=== PATIENT | male | born 1930 | race Caucasian/White ===

== ENCOUNTER → 2016-10-13 | Outpatient (CLI) | payer MEDICARE ==
--- NOTE | 2016-10-13 11:55 | Diagnostic Imaging Report ---
Indication: Abdominal pain Technique: Continuous helical transaxial imaging of the abdomen and pelvis was obtained from the lung bases to the pubic symphysis during intravenous contrast administration. Coronal 2-D reformats were also obtained. Study obtained in a Siemens sensation [address] Total Dose length Product (DLP): [address] Dose Index Volume (CTDIvol): 18 mGy Comparison: 05/13/15 Findings: The lung bases are clear. There are multiple cysts within both kidneys of varying size. The largest single cyst is in the upper pole left kidney and has approximate measurements of 15 x 12 x 9 cm. No abnormalities of the liver, spleen or pancreas are definitely seen. There is no adrenal mass. Gallbladder is unremarkable. Aorta is moderately calcified. There are diverticula noted throughout the colon. Prostate is enlarged. Appendix is not definite seen but there are no secondary signs of acute appendicitis. There is narrowing of intervertebral discs and accompanying endplate osteophyte formation. Hypertrophied facet joints also demonstrated. Impression: Multiple cysts within both kidneys. Symphysis are quite large with the largest single cyst of the left kidney measuring 15 cm. Diverticulosis of the colon Prostate enlargement Spondylosis Similar findings seen previously The CT scanner at [facility] is accredited by the [employer] and the scans are performed using protocols designed to limit radiation exposure to as low as reasonably achievable to attain images of sufficient resolution adequate for diagnostic evaluation.
== END | disposition home or self-care (01) ==
LOC: CAT 09:02
DX: N28.1 Cyst of kidney, acquired (principal); K57.90 Diverticulosis of intestine, part unspecified, without perforation or abscess without bleeding; N40.0 Benign prostatic hyperplasia without lower urinary tract symptoms; M47.9 Spondylosis, unspecified
CPT/HCPCS: 74177; Q9967

== ENCOUNTER 2016-12-15 15:00 | Outpatient (RCR) | payer MEDICARE | END 2017-01-05 | disposition home or self-care (01) | LOC: PTY 15:00 | DX: I89.0 Lymphedema, not elsewhere classified (principal) ==

== ENCOUNTER 2017-01-28 09:00 | Outpatient (RCR) | payer MEDICARE, OTHER | END 2017-02-04 | disposition home or self-care (01) | LOC: PTY 09:00 | DX: I89.0 Lymphedema, not elsewhere classified (principal) ==

== ENCOUNTER 2017-02-10 11:00 | Outpatient (RCR) | payer MEDICARE, OTHER | END 2017-03-07 | disposition home or self-care (01) | LOC: PTY 11:00 | DX: I89.0 Lymphedema, not elsewhere classified (principal) ==

== ENCOUNTER 2017-11-13 16:01 | Inpatient (IN) | payer MEDICARE, OTHER ==
[~2017-11-13] VITALS: Ht 175.3 cm; Wt 98.0 kg
--- NOTE | 2017-11-13 16:22 | Emergency Room Report ---
History of Present Illness General Chief Complaint: Generalized Weakness Source: Patient Present Illness HPI 87-year-old male, history of hypertension, presenting with increasing forgetfulness, tremors, gait instability. Patient lives at home, usually drives on his own, he is brought by a friend as friend states that he has been increasingly weak for the last 3 weeks. He has had worsening bilateral hand tremors, sometimes unable to walk and loses his balance. He has fallen however no head trauma. Patient is currently ANO 4, however friend states that he will intermittently forget everything. Patient walks with a cane however recently has been walking very slowly, and feels like he will fall at any time Denies any fever chills headache chest pain nausea vomiting diarrhea abdominal pain Allergies: Coded Allergies: No Known Allergies (Unverified , 11/15/16) Patient History Past Medical History: see triage record Past Surgical History: none Pertinent Family History: none Reviewed Nursing Documentation: PMH: Agreed; PSxH: Agreed Nursing Documentation-PMH Hx Hypertension: Yes Hx Cancer: Yes - HX OF SKIN CANCER Review of Systems All Other Systems: negative except mentioned in HPI Physical Exam Vital Signs Date Time Temp Pulse Resp B/P (MAP) Pulse Ox O2 Delivery O2 Flow Rate FiO2 11/13/17 16:11 98.2 88 16 184/107 94 Room Air 98.2 Sp02 EP Interpretation: reviewed, normal General Appearance: other - Elderly male, appears anxious, however is cooperative, speaking complete sentences Head: normocephalic, atraumatic Eyes: bilateral eye normal inspection, bilateral eye PERRL, bilateral eye EOMI ENT: normal ENT inspection, normal pharynx, normal voice, moist mucus membranes Neck: normal inspection, full range of motion, supple Respiratory: normal inspection, lungs clear, normal breath sounds, no respiratory distress, no retraction, no wheezing, speaking full sentences, chest symmetrical Cardiovascular #1: normal inspection, regular rate, rhythm, normal capillary refill Cardiovascular #2: 2+ radial (R), 2+ radial (L) Gastrointestinal: normal inspection, non tender, soft, non-distended, no guarding Musculoskeletal: normal inspection, back normal, normal range of motion, non- tender Neurologic: oriented x3, responsive, microbiology lab manager III-XII nml as tested, motor strength/ tone normal, other - Bilateral hand resting tremors, finger to nose is normal Psychiatric: normal inspection, judgement/insight normal, memory normal Skin: normal inspection, normal color, no rash, warm/dry, well hydrated, normal turgor Medical Decision Making Diagnostic Impression: Primary Impression: Gait instability Additional Impressions: Step-ackerman progression of memory impairment Frequent falls ER Course 87-year-old male, progressive memory loss, resting hand tremors, gait instability Frequent falls DDX: Dementia, Parkinson's disease Plan: Obtain labs, ua, EKG, CXR CT head ER course: Patient remains awake and alert given meds for back pain Disposition: Patient is to be admitted to [facility] D/W hospitalist Dr Gillis covering Dr Bourgeois Please note that this Emergency Department Report was dictated using [employer]sm[employer] polisher technology software, occasionally this can lead to erroneous entry secondary to interpretation by the dictation equipment. EKG Diagnostic Results EP Interpretation: Yes Rate: normal Rhythm: NSR ST Segments: No acute changes ASA given to patient: No Rhythm Strip EP Interpretation: Yes Rate: 87 Rhythm: NSR, no PVCs, no ectopy Chest X-ray CXR: Ordered: Yes 1 view Indication: Fall EP interpretation: Yes Interpretation: No consolidation, no effusion, no PTX, no acute cardiopulmonary disease Impression: No acute disease Electronically signed by Pat Sommers MD Laboratory Tests Test 11/13/17 16:37 White Blood Count 5.8 K/UL (4.8-10.8) Red Blood Count 4.45 M/UL (4.70-6.10) L Hemoglobin 13.9 G/DL (14.2-18.0) L Hematocrit 42.3 % (42.0-52.0) Mean Corpuscular Volume 95 FL (80-99) Mean Corpuscular Hemoglobin 31.2 PG (27.0-31.0) H Mean Corpuscular Hemoglobin Concent 32.9 G/DL (32.0-36.0) Red Cell Distribution Width 11.9 % (11.6-14.8) Platelet Count 145 K/UL (150-450) L Mean Platelet Volume 8.5 FL (6.5-10.1) Neutrophils (%) (Auto) 60.3 % (45.0-75.0) Lymphocytes (%) (Auto) 26.3 % (20.0-45.0) Monocytes (%) (Auto) 10.3 % (1.0-10.0) H Eosinophils (%) (Auto) 2.2 % (0.0-3.0) Basophils (%) (Auto) 0.8 % (0.0-2.0) Sodium Level 142 MMOL/L (136-145) Potassium Level 3.6 MMOL/L (3.5-5.1) Chloride Level 106 MMOL/L (98-107) Carbon Dioxide Level 29 MMOL/L (21-32) Anion Gap 7 mmol/L (5-15) Blood Urea Nitrogen 16 mg/dL (7-18) Creatinine 1.1 MG/DL (0.55-1.30) Estimate Glomerular Filtration Rate mL/min (>60) Glucose Level 104 MG/DL (74-106) Calcium Level 8.7 MG/DL (8.5-10.1) Total Bilirubin 0.6 MG/DL (0.2-1.0) Aspartate Amino Transferase (AST) 17 U/L (15-37) Alanine Aminotransferase (ALT) 17 U/L (12-78) Alkaline Phosphatase 57 U/L (46-116) Troponin I 0.004 ng/mL (0.000-0.056) Pro-B-Type Natriuretic Peptide 200 pg/mL (0-125) H Total Protein 6.2 G/DL (6.4-8.2) L Albumin 3.4 G/DL (3.4-5.0) Globulin 2.8 g/dL Albumin/Globulin Ratio 1.2 (1.0-2.7) CT/MRI/US Diagnostic Results CT/MRI/US Diagnostic Results : Imaging Test Ordered: CT HEAD Impression neg Last Vital Signs Date Time Temp Pulse Resp B/P (MAP) Pulse Ox O2 Delivery O2 Flow Rate FiO2 11/13/17 16:11 98.2 88 16 184/107 94 Room Air 98.2 Disposition: ADMITTED INPATIENT Condition: Pat Dang M.D. Nov 13, 2017 16:22
[2017-11-13 16:24] VITALS: BP 184/107
[2017-11-13 16:57] LABS: BASOPHILS % (AUTO) 0.8 % (0.0-2.0); EOSINOPHILS % (AUTO) 2.2 % (0.0-3.0); HEMATOCRIT 42.3 % (42.0-52.0); HEMOGLOBIN 13.9 G/DL (14.2-18.0); LYMPHOCYTES % (AUTO) 26.3 % (20.0-45.0); MEAN CORPUSCULAR VOLUME 95 FL (80-99); MONOCYTES % (AUTO) 10.3 % (1.0-10.0); NEUTROPHILS % (AUTO) 60.3 % (45.0-75.0); PLATELET COUNT 145 K/UL (150-450); RED BLOOD COUNT 4.45 M/UL (4.70-6.10); RED CELL DISTRIBUTION WIDTH 11.9 % (11.6-14.8); WHITE BLOOD COUNT 5.8 K/UL (4.8-10.8)
[2017-11-13 17:09] LABS: ANION GAP 7 mmol/L (5-15); BLOOD UREA NITROGEN 16 mg/dL (7-18); CALCIUM 8.7 MG/DL (8.5-10.1); CARBON DIOXIDE 29 MMOL/L (21-32); CHLORIDE 106 MMOL/L (98-107); CREATININE 1.1 MG/DL (0.55-1.30); POTASSIUM 3.6 MMOL/L (3.5-5.1); SODIUM 142 MMOL/L (136-145)
[2017-11-13 17:15] LABS: ALANINE AMINOTRANSFERASE 17 U/L (12-78); ALBUMIN 3.4 G/DL (3.4-5.0); ALBUMIN/GLOBULIN RATIO 1.2 (1.0-2.7); ALKALINE PHOSPHATASE 57 U/L (46-116); ASPARTATE AMINO TRANSFERASE 17 U/L (15-37); BILIRUBIN,TOTAL 0.6 MG/DL (0.2-1.0)
[2017-11-13] MEDS ORDERED: LISINOPRIL10 MG ORAL (17:43)
[2017-11-13] MEDS ORDERED: ACETAMINOPHEN325 M1 ORAL (17:44)
[2017-11-13] MEDS ORDERED: OMEPRAZOLE10 M1 ORAL (17:44)
[2017-11-13] MEDS ORDERED: Methocarbamol 750mg tab ORAL ONE (17:45)
[2017-11-13] MEDS ORDERED: Acetaminophen 500mg (ES) tab ORAL ONE (17:45)
[2017-11-13] MEDS ORDERED: LORAZEPAM0.5 MG ORAL (17:45)
[2017-11-13] MEDS ORDERED: TRAMADOL HCL50 MG ORAL (17:46)
[2017-11-13] MEDS ORDERED: METRONIDAZOLE500 MG ORAL (17:47)
[2017-11-13] MEDS ORDERED: LEVOFLOXACIN500 MG ORAL (17:47)
[2017-11-13] MEDS ORDERED: Miralax 17gm pkt ORAL PRN (19:30)
[2017-11-13] MEDS ORDERED: LORazepam 0.5mg tab ORAL PRN (19:45)
[2017-11-13] MEDS ORDERED: traMADol 50mg tab ORAL PRN (19:45)
[2017-11-13 19:49] VITALS: BP 150/80
[2017-11-13 20:08] LABS: APPEARANCE,URINE CLEAR; BILIRUBIN, URINE NEGATIVE (NEGATIVE); COLOR,URINE YELLOW; GLUCOSE, URINE (UA) NEGATIVE (NEGATIVE); KETONES,URINE 1+ (NEGATIVE); LEUKOCYTE ESTERASE ,URINE 1+ (NEGATIVE); NITRITE,URINE NEGATIVE (NEGATIVE); PH,URINE 5 (4.5-8.0); PROTEIN,URINE 4+ (NEGATIVE); UROBILINOGEN,URINE NORMAL MG/DL (0.0-1.0)
--- NOTE | 2017-11-13 21:26 | History and Physical ---
History of Present Illness General Date patient seen: Nov 13, 2017 Time patient seen: 21:25 Reason for Hospitalization: Generalized Weakness, AMS, gait instability Present Illness HPI 87y/o male with pmh of HTN, anxiety, GERD who presents with increasing confusion , tremors, and gait instability. Pt lives at home, usually drives on his own, he is brought by a friend as friend states that he has been increasingly weak for the last 3 weeks. He has had worsening bilateral hand tremors, sometimes unable to walk and loses his balance. He has fallen however denies head trauma. Patient is currently ANO 4, however friend states that he will intermittently forget everything. Patient walks with a cane however recently has been walking very slowly, and feels like he will fall at any time. Denies f/ c, n/v, d/c, chest pain, SOB, abd pain. Allergies: Coded Allergies: No Known Allergies (Unverified , 11/15/16) Medication History Scheduled Acetaminophen* (Acetaminophen 325MG Tablet*), 325 MG ORAL BID, (Reported) Cefuroxime Axetil (Ceftin), 250 MG PO BID Lisinopril* (Lisinopril*), 10 MG ORAL DAILY, (Reported) Lorazepam* (Lorazepam*), 0.5 MG ORAL BID, (Reported) Omeprazole (Omeprazole), 10 MG ORAL TWICE A DAY, (Reported) Scheduled PRN Tramadol Hcl* (Ultram*), 50 MG ORAL Q6H PRN for For Pain, (Reported) Discontinued Medications Levofloxacin (Levofloxacin*), 500 MG ORAL DAILY, (Reported) Discontinued Reason: MD discontinued med Metronidazole* (Flagyl*), 500 MG ORAL EVERY 8 HOURS, (Reported) Discontinued Reason: MD discontinued med Patient History History Provided By: Patient, Medical Record, PMD Healthcare decision maker Resuscitation status Advanced Directive on File Past Medical/Surgical History Past Medical/Surgical History: (1) HTN (hypertension) (2) GERD (gastroesophageal reflux disease) (3) Anxiety Family History Family History: Patient reports no known family medical history. Review of Systems Constitutional: Reports: weakness Eye: Reports: no symptoms ENT: Reports: no symptoms Respiratory: Reports: no symptoms Cardiovascular: Reports: no symptoms Gastrointestinal: Reports: no symptoms Genitourinary: Reports: no symptoms Musculoskeletal: Reports: no symptoms Skin: Reports: no symptoms Psychiatric: Reports: anxiety Neurological: Reports: tremors Endocrine: Reports: no symptoms Hematologic/Lymphatic: Reports: no symptoms Physical Exam Physical Exam Narrative General: alert, cooperative, no distress, appears stated age, A&Ox2-3 (not to date) Head: normocephalic, without obvious abnormality, atraumatic Eyes: conjunctivae/corneas clear. PERRL, EOM's intact Throat: lips, mucosa, and tongue normal. MMM Neck: supple, symmetrical, trachea midline, and no JVD Lungs: clear to auscultation bilaterally Heart: regular rate and rhythm, S1, S2 normal, no murmur, click, rub or gallop Abdomen: soft, non-tender, non-distended, bowel sounds normal; no masses or organomegaly Extremities: extremities normal, atraumatic, no cyanosis or edema Pulses: 2+ and symmetric Skin: skin color, texture, turgor normal; no rashes or lesions Neurologic: grossly normal, no focal deficits, +tremor Last 24 Hour Vital Signs Date Time Temp Pulse Resp B/P (MAP) Pulse Ox O2 Delivery O2 Flow Rate FiO2 11/13/17 19:49 98.0 71 16 150/80 97 Room Air 98.0 11/13/17 19:02 98.2 11/13/17 16:24 98.2 16 184/107 94 Room Air 98.2 11/13/17 16:11 98.2 88 16 184/107 94 Room Air 98.2 Laboratory Tests Test 11/13/17 16:37 11/13/17 19:59 White Blood Count 5.8 K/UL (4.8-10.8) Red Blood Count 4.45 M/UL (4.70-6.10) L Hemoglobin 13.9 G/DL (14.2-18.0) L Hematocrit 42.3 % (42.0-52.0) Mean Corpuscular Volume 95 FL (80-99) Mean Corpuscular Hemoglobin 31.2 PG (27.0-31.0) H Mean Corpuscular Hemoglobin Concent 32.9 G/DL (32.0-36.0) Red Cell Distribution Width 11.9 % (11.6-14.8) Platelet Count 145 K/UL (150-450) L Mean Platelet Volume 8.5 FL (6.5-10.1) Neutrophils (%) (Auto) 60.3 % (45.0-75.0) Lymphocytes (%) (Auto) 26.3 % (20.0-45.0) Monocytes (%) (Auto) 10.3 % (1.0-10.0) H Eosinophils (%) (Auto) 2.2 % (0.0-3.0) Basophils (%) (Auto) 0.8 % (0.0-2.0) Sodium Level 142 MMOL/L (136-145) Potassium Level 3.6 MMOL/L (3.5-5.1) Chloride Level 106 MMOL/L (98-107) Carbon Dioxide Level 29 MMOL/L (21-32) Anion Gap 7 mmol/L (5-15) Blood Urea Nitrogen 16 mg/dL (7-18) Creatinine 1.1 MG/DL (0.55-1.30) Estimat Glomerular Filtration Rate mL/min (>60) Glucose Level 104 MG/DL (74-106) Calcium Level 8.7 MG/DL (8.5-10.1) Total Bilirubin 0.6 MG/DL (0.2-1.0) Aspartate Amino Transf (AST/SGOT) 17 U/L (15-37) Alanine Aminotransferase (ALT/SGPT) 17 U/L (12-78) Alkaline Phosphatase 57 U/L (46-116) Troponin I 0.004 ng/mL (0.000-0.056) Pro-B-Type Natriuretic Peptide 200 pg/mL (0-125) H Total Protein 6.2 G/DL (6.4-8.2) L Albumin 3.4 G/DL (3.4-5.0) Globulin 2.8 g/dL Albumin/Globulin Ratio 1.2 (1.0-2.7) Urine Color Yellow Urine Appearance Clear Urine pH 5 (4.5-8.0) Urine Specific Dixon 1.025 (1.005-1.035) Urine Protein 4+ (NEGATIVE) H Urine Glucose (UA) Negative (NEGATIVE) Urine Ketones 1+ (NEGATIVE) H Urine Occult Blood 2+ (NEGATIVE) H Urine Nitrite Negative (NEGATIVE) Urine Bilirubin Negative (NEGATIVE) Urine Urobilinogen Normal MG/DL (0.0-1.0) Urine Leukocyte Esterase 1+ (NEGATIVE) H Urine RBC 2-4 /HPF (0 - 0) H Urine WBC 0-2 /HPF (0 - 0) Urine Squamous Epithelial Cells None /LPF (NONE/OCC) Urine Bacteria None /HPF (NONE) Urine Mucus Moderate /LPF (NONE/OCC) H Height (Feet): 5 Height (Inches): 10.00 Weight (Pounds): 210 Medications Current Medications Medications (Trade) Dose Ordered Sig/Miriam Route PRN Reason Start Time Stop Time Status Last Admin Dose Admin Acetaminophen (Tylenol) 650 mg Q4H PRN ORAL Mild Pain (Pain Scale 1-3) 11/13/17 19:30 12/13/17 19:29 Acetaminophen (Tylenol) 650 mg Q4H PRN ORAL fever 11/13/17 19:30 12/13/17 19:29 Bisacodyl (Dulcolax) 10 mg HSPRN PRN RECTAL Constipation 11/13/17 19:30 12/13/17 19:29 Ceftriaxone Sodium 1 gm/ Sodium Chloride 110 ml @ 220 mls/hr QHS IVPB 11/13/17 22:00 11/20/17 21:59 Dextrose (Dextrose 50%) 25 ml STAT PRN IV Hypoglycemia 11/13/17 19:30 12/13/17 19:29 Dextrose (Dextrose 50%) 50 ml STAT PRN IV Hypoglycemia 11/13/17 19:30 12/13/17 19:29 Docusate Sodium (Colace) 100 mg EVERY 12 HOURS ORAL 11/13/17 21:00 12/13/17 20:59 Heparin Sodium (Porcine) (Heparin 5000 units/ml) 5,000 units EVERY 12 HOURS SUBQ 11/13/17 21:00 12/13/17 20:59 Lisinopril (Zestril) 10 mg DAILY ORAL 11/14/17 09:00 12/14/17 08:59 Lorazepam (Ativan) 0.5 mg BIDPRN PRN ORAL anxiety 11/13/17 19:45 11/20/17 19:44 Ondansetron HCl (Zofran) 4 mg Q6H PRN IVP Nausea & Vomiting 11/13/17 19:30 12/13/17 19:29 Pantoprazole (Protonix) 20 mg BID ORAL 11/14/17 18:00 12/14/17 17:59 UNV Polyethylene Glycol (Miralax) 17 gm HSPRN PRN ORAL Constipation 11/13/17 19:30 12/13/17 19:29 Sodium Chloride 1,000 ml @ 75 mls/hr [id number] IVLG 11/13/17 20:00 12/13/17 19:59 Tramadol HCl (Ultram) 50 mg Q6H PRN ORAL moderate to severe pain 11/13/17 19:45 11/20/17 19:44 Assessment/Plan Problem List: (1) Encephalopathy ICD Codes: G93.40 - Encephalopathy, unspecified SNOMED: 86784484 (2) Gait instability ICD Codes: R26.81 - Unsteadiness on feet SNOMED: 85941561, 383467090 (3) UTI (urinary tract infection) ICD Codes: N39.0 - Urinary tract infection, site not specified SNOMED: 77058077 Status: stable Assessment/Plan Admit to tele Neurology consulted Check folate, B12, TSH Check MRI brain Check EEG Neuro checks ID consulted Empiric ceftriaxone F/u urine culture Pain control, bowel regimen Supportive care PT/OT eval DVT Prophylaxis: SCD, HSQ Code Status: Full Hospital Classification Declaration: Based on this initial evaluation, and depending on the patient's clinical course, I anticipate that this patient will require hospitalization for 2-3 days for workup of encephalopathy, UTI and close respiratory/hemodynamic monitoring. Disposition: Once the patient is stable to leave the hospital, I anticipate the patient will likely be discharged to the following environment: home with HH vs SNF I spent 70 minutes on this patient's case, and >50% was dedicated to counseling and/or care coordination. Discussed with patient/family, nursing staff, SW/CM, ID, neuro regarding clinical status, treatment course, and disposition planning. D/w pt/family, RN, SW/CM regarding mgmt and dispo Time of note may not reflect time of encounter. Rogers Huizar M.D. Nov 13, 2017 21:26
[2017-11-13] MEDS: cefTRIAXone 1 GM in NS 110 ML IVPB SCH (22:41)
[2017-11-13] MEDS: Docusate 100mg cap ORAL SCH (22:41)
[2017-11-13] MEDS: Heparin 5000 units/ml inj SUBQ SCH (22:43)
[2017-11-14 00:30] VITALS: BP 121/76
[2017-11-14 04:00] VITALS: BP 124/75
[2017-11-14 06:51] LABS: BASOPHILS % (AUTO) 1.4 % (0.0-2.0); HEMATOCRIT 38.1 % (42.0-52.0); LYMPHOCYTES % (AUTO) 37.9 % (20.0-45.0); MEAN CORPUSCULAR VOLUME 95 FL (80-99); NEUTROPHILS % (AUTO) 45.7 % (45.0-75.0); PLATELET COUNT 131 K/UL (150-450); RED BLOOD COUNT 4.03 M/UL (4.70-6.10); WHITE BLOOD COUNT 5.1 K/UL (4.8-10.8)
[2017-11-14 07:22] LABS: ALANINE AMINOTRANSFERASE 16 U/L (12-78); ALBUMIN 2.9 G/DL (3.4-5.0); ALBUMIN/GLOBULIN RATIO 1.1 (1.0-2.7); ALKALINE PHOSPHATASE 50 U/L (46-116); ANION GAP 7 mmol/L (5-15); ASPARTATE AMINO TRANSFERASE 15 U/L (15-37); BILIRUBIN,TOTAL 0.5 MG/DL (0.2-1.0); BLOOD UREA NITROGEN 18 mg/dL (7-18); CALCIUM 8.4 MG/DL (8.5-10.1); CARBON DIOXIDE 29 MMOL/L (21-32); CHLORIDE 107 MMOL/L (98-107); CHOLESTEROL 142 MG/DL (< 200); CREATININE 1.1 MG/DL (0.55-1.30); HDL CHOLESTEROL 71 MG/DL (40-60); POTASSIUM 3.5 MMOL/L (3.5-5.1); SODIUM 143 MMOL/L (136-145); TRIGLYCERIDES 54 MG/DL (30-150)
[2017-11-14 08:00] VITALS: BP 138/96
[2017-11-14] MEDS: Lisinopril 10mg tab ORAL SCH (08:56)
[2017-11-14] MEDS: Docusate 100mg cap ORAL SCH ×2 (08:56→21:35)
[2017-11-14] MEDS: Heparin 5000 units/ml inj SUBQ SCH ×2 (08:59→21:00)
--- NOTE | 2017-11-14 09:24 | Diagnostic Imaging Report ---
Indication: Headache Technique: Contiguous 5 mm thick transaxial imaging of the head obtained in a Siemens Sensation [address] scanner. Soft tissue and bone windows generated. Automatic Exposure Control was utilized. Total Dose length Product (DLP): 1284.[address] Dose Index Volume (CTDIvol): 70.38 mGy Comparison: none Findings: There is mild prominence of the ventricles, basal cisterns, and cerebral sulci consistent with atrophy. Mild, nonspecific, white matter hypoattenuation is noted throughout the brain consistent with chronic small vessel disease. There is no midline shift, edema, acute hemorrhage, mass effect, or abnormal extra-axial fluid collections. Bones and extra osseous soft tissues are unremarkable. Impression: No acute intracranial bleed, mass effect or edema. Mild atrophy of the brain. Nonspecific white matter hypoattenuation probably due to chronic small vessel disease. [facility] has communicated the preliminary results to the Emergency Department. Their findings are largely concordant with this report. The CT scanner at [facility] is accredited by the [employer] and the scans are performed using dose optimization techniques as appropriate to a performed exam including Automatic Exposure control.
--- NOTE | 2017-11-14 10:00 | Diagnostic Imaging Report ---
Indication: Chest pain Comparison: 07/02/2015 A single view chest radiograph was obtained. Findings: No definite infiltrate or pulmonary vascular congestion identified. The heart is relatively normal in size. The aorta is mildly enlarged consistent with atherosclerotic vascular disease. The bones are osteopenic. Impression: No acute disease
--- NOTE | 2017-11-14 11:30 | Consultation ---
Consult Note Consult Note NEUROLOGY CONSULTATION: Full note dictated #[id number] 87 y/o, RH, CM with a PH of HTN, macular degeneration, OA s/p B-TKR, gait problems, neuropathy of unknown etiology, chronic alcohol use, who ~ 2-3 weeks ago noted increased problems with memory, and increased unsteadiness on his feet. Then ~ 1 week ago he decided to stop drinking and he noted a tremor in his hands. ON EXAM: Disoriented to exact date. M-3-0, 1, 3 2nd try Trump through Amor Right VII central Decreased position in toes. Globally diminished DTRs Wide based stance and gait. IMPRESSION: Cognitive dysfunction due to encephalopathy vs primary degenerative process. Right VII central due to CVD old vs new. Gait disorder due to neuropathic process and possibly spinal intermittent claudication. REC: MRI of brain and LS spine. Labs for memory loss and neuropathy. EEG Observe. PT/OT Carlos Beauchamp M.D., M.S.P.Jeremias. CARLOS BEAUCHAMP Nov 14, 2017 11:30
[2017-11-14] MEDS ORDERED: LORazepam 1mg tab ORAL SCH (11:45)
[2017-11-14 12:01] VITALS: BP 148/78
--- NOTE | 2017-11-14 12:38 | History & Physical ---
History and Physical History & Physicial HP dictated # [id number] ERICK GRACE Nov 14, 2017 12:38
[2017-11-14] MEDS ORDERED: LORazepam 1mg tab ORAL PRN (14:15)
--- NOTE | 2017-11-14 15:51 | Diagnostic Imaging Report ---
Indication: Back pain Technique: MRI examination of the Lumbar spine was performed in a 1.5 Lakeisha magnet. Sequences obtained include sagittal and axial T1 and T2 fast spin echo, and sagittal STIR. Comparison: none Findings: Mild disc desiccation and narrowing demonstrated at L1-2 with a concentric disc bulge. Facet hypertrophy demonstrated. No significant central stenosis or foraminal narrowing appreciated. L2-3: Concentric disc bulge and facet hypertrophy demonstrated. No significant narrowing of the central canal or neural foramen. L3-4: Moderate disc desiccation and narrowing, mild retrolisthesis, hypertrophied ligamentum flavum and moderately hypertrophied facets. There is mild central stenosis. There is moderate narrowing of the lateral recess and moderate to severe bilateral foraminal stenosis. L4-5: Moderate degenerative disc disease with desiccation and narrowing, endplate spurs, concentric disc bulge, moderate facet hypertrophy and hypertrophy ligamentum flavum. Moderate narrowing of the lateral recess and moderate to severe bilateral foraminal stenosis. L5-S1: Mild desiccation and narrowing of the disc. Concentric disc bulge. Mild anterolisthesis. Moderate to severe facet hypertrophy demonstrated. Moderate to severe bilateral foraminal stenosis and narrowing of the lateral recess. There could be a pars interarticularis defect at L5 but this is not for certain. Evaluation with CT may be more helpful in this regard if this is clinically warranted or this information is useful. There is no bone marrow edema. Bone marrow signal is slightly heterogeneous but there are large degenerative in nature. Conus medullaris is seen at T12 and appears normal. There are multiple cysts present within both kidneys partially imaged on this exam. 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 L3-4 mild central stenosis, moderate neural foraminal and lateral recess stenosis. L4-5: Moderate lateral recess and moderate to severe foraminal stenosis bilaterally. L5-S1: Moderate to severe bilateral foraminal stenosis and lateral recess narrowing
[2017-11-14 16:00] VITALS: BP 126/56
--- NOTE | 2017-11-14 16:07 | Diagnostic Imaging Report ---
Indication: Acute CVA. Memory loss. Focal Weakness. Technique: The head was imaged in a 1.5 Lakeisha magnet. Sequences obtained include sagittal and axial T1 FLAIR, axial T2 fast spin echo with fat saturation, axial T2 FLAIR, diffusion and ADC map. Comparison: None Findings: There is moderate prominence of the sulci, ventricles, and basal cisterns consistent with atrophy. Moderate, nonspecific T2 hyperintensity noted within white matter. This may be due to chronic small vessel disease. There is no restricted diffusion. Banks-white differentiation is normal. There is no mass effect, midline shift, edema, or hemorrhage. There are no abnormal extra-axial or intra-axial fluid collections. The corpus callosum and sella are unremarkable. The brainstem and cerebellum are unremarkable. Bone marrow signal within the visualized osseous structures appears age appropriate and unremarkable otherwise. Impression: No acute intracranial findings. Moderate atrophy and evidence of chronic small vessel disease involving white matter tracts.
--- NOTE | 2017-11-14 16:30 | Infectious Diseases Prog Note ---
Assessment/Plan Assessment/Plan Full consult dictated A) 1) urinary frequency and dysuria, ? uti, ? prostatitis, hx elevated psa 2) tremor, unstable gait, htn, gerd/heartburn, ? bph, proteinuria 3) allergies - negative P) 1) ceftriaxone 2) check urine culture 3) check psa 4) neurology w/u, nephrology w/u 5) continue tx per Dr. Mccloud and consultants 6) thank you Subjective Allergies: Coded Allergies: No Known Allergies (Unverified , 11/15/16) Objective Vital Signs Last 24 Hour Vital Signs Date Time Temp Pulse Resp B/P (MAP) Pulse Ox O2 Delivery O2 Flow Rate FiO2 11/14/17 12:01 98.8 82 22 148/78 99 Room Air 98.8 11/14/17 08:56 138/96 11/14/17 08:00 98.5 71 21 138/96 96 Room Air 98.5 11/14/17 04:00 98.2 61 20 124/75 97 Room Air 98.2 11/14/17 00:30 98.0 68 20 121/76 94 Room Air 98.0 11/13/17 20:00 98.0 71 16 150/80 97 Room Air 98.0 11/13/17 19:49 98.0 71 16 150/80 97 Room Air 98.0 11/13/17 19:02 98.2 11/13/17 16:24 98.2 16 184/107 94 Room Air 98.2 Height (Feet): 5 Height (Inches): 9.00 Weight (Pounds): 216 Laboratory Tests Test 11/13/17 16:37 11/13/17 19:59 11/13/17 23:00 11/14/17 05:55 White Blood Count 5.8 K/UL (4.8-10.8) 5.1 K/UL (4.8-10.8) Red Blood Count 4.45 M/UL (4.70-6.10) L 4.03 M/UL (4.70-6.10) L Hemoglobin 13.9 G/DL (14.2-18.0) L 13.0 G/DL (14.2-18.0) L Hematocrit 42.3 % (42.0-52.0) 38.1 % (42.0-52.0) L Mean Corpuscular Volume 95 FL (80-99) 95 FL (80-99) Mean Corpuscular Hemoglobin 31.2 PG (27.0-31.0) H 32.3 PG (27.0-31.0) H Mean Corpuscular Hemoglobin Concent 32.9 G/DL (32.0-36.0) 34.2 G/DL (32.0-36.0) Red Cell Distribution Width 11.9 % (11.6-14.8) 12.0 % (11.6-14.8) Platelet Count 145 K/UL (150-450) L 131 K/UL (150-450) L Mean Platelet Volume 8.5 FL (6.5-10.1) 9.5 FL (6.5-10.1) Neutrophils (%) (Auto) 60.3 % (45.0-75.0) 45.7 % (45.0-75.0) Lymphocytes (%) (Auto) 26.3 % (20.0-45.0) 37.9 % (20.0-45.0) Monocytes (%) (Auto) 10.3 % (1.0-10.0) H 11.0 % (1.0-10.0) H Eosinophils (%) (Auto) 2.2 % (0.0-3.0) 4.0 % (0.0-3.0) H Basophils (%) (Auto) 0.8 % (0.0-2.0) 1.4 % (0.0-2.0) Sodium Level 142 MMOL/L (136-145) 143 MMOL/L (136-145) Potassium Level 3.6 MMOL/L (3.5-5.1) 3.5 MMOL/L (3.5-5.1) Chloride Level 106 MMOL/L (98-107) 107 MMOL/L (98-107) Carbon Dioxide Level 29 MMOL/L (21-32) 29 MMOL/L (21-32) Anion Gap 7 mmol/L (5-15) 7 mmol/L (5-15) Blood Urea Nitrogen 16 mg/dL (7-18) 18 mg/dL (7-18) Creatinine 1.1 MG/DL (0.55-1.30) 1.1 MG/DL (0.55-1.30) Estimat Glomerular Filtration Rate mL/min (>60) mL/min (>60) Glucose Level 104 MG/DL (74-106) 94 MG/DL (74-106) Calcium Level 8.7 MG/DL (8.5-10.1) 8.4 MG/DL (8.5-10.1) L Total Bilirubin 0.6 MG/DL (0.2-1.0) 0.5 MG/DL (0.2-1.0) Aspartate Amino Transf (AST/SGOT) 17 U/L (15-37) 15 U/L (15-37) Alanine Aminotransferase (ALT/SGPT) 17 U/L (12-78) 16 U/L (12-78) Alkaline Phosphatase 57 U/L (46-116) 50 U/L (46-116) Troponin I 0.004 ng/mL (0.000-0.056) Pro-B-Type Natriuretic Peptide 200 pg/mL (0-125) H Total Protein 6.2 G/DL (6.4-8.2) L 5.6 G/DL (6.4-8.2) L Albumin 3.4 G/DL (3.4-5.0) 2.9 G/DL (3.4-5.0) L Globulin 2.8 g/dL 2.7 g/dL Albumin/Globulin Ratio 1.2 (1.0-2.7) 1.1 (1.0-2.7) Urine Color Yellow Urine Appearance Clear Urine pH 5 (4.5-8.0) Urine Specific [place] 1.025 (1.005-1.035) Urine Protein 4+ (NEGATIVE) H Urine Glucose (UA) Negative (NEGATIVE) Urine Ketones 1+ (NEGATIVE) H Urine Occult Blood 2+ (NEGATIVE) H Urine Nitrite Negative (NEGATIVE) Urine Bilirubin Negative (NEGATIVE) Urine Urobilinogen Normal MG/DL (0.0-1.0) Urine Leukocyte Esterase 1+ (NEGATIVE) H Urine RBC 2-4 /HPF (0 - 0) H Urine WBC 0-2 /HPF (0 - 0) Urine Squamous Epithelial Cells None /LPF (NONE/OCC) Urine Bacteria None /HPF (NONE) Urine Mucus Moderate /LPF (NONE/OCC) H Urine Opiates Screen Negative (NEGATIVE) Urine Barbiturates Screen Negative (NEGATIVE) Phencyclidine (PCP) Screen Negative (NEGATIVE) Urine Amphetamines Screen Negative (NEGATIVE) Urine Benzodiazepines Screen Negative (NEGATIVE) Urine Cocaine Screen Negative (NEGATIVE) Urine Marijuana (THC) Screen Negative (NEGATIVE) Urine Ethyl Alcohol Pending Magnesium Level 1.6 MG/DL (1.8-2.4) L Triglycerides Level 54 MG/DL (30-150) Cholesterol Level 142 MG/DL (< 200) LDL Cholesterol 59 mg/dL (<100) HDL Cholesterol 71 MG/DL (40-60) H Cholesterol/HDL Ratio 2.0 (3.3-4.4) L Thyroid Stimulating Hormone (TSH) 3.109 uiU/mL (0.358-3.740) Test 11/14/17 13:40 Erythrocyte Sedimentation Rate 5 MM/HR (0-20) Hemoglobin A1c 5.6 % (4.3-6.0) Total Protein (PEP) Pending Albumin (PEP) Pending Globulin (PEP) Pending Albumin/Globulin Ratio Pending Pkvri-[id number] Pending Uwaqb-[id number] Pending Beta Globulins Pending Beta Gamma Globulin Pending PEP Abnormal Protein Bands Pending Protein Electrophoresis Interpret Pending Vitamin B12 Level 260 PG/ML (193-986) Vitamin D 25-Hydroxy Pending 25-Hydroxy Vitamin D2 Pending 25-Hydroxy Vitamin D3 Pending Folate 10.1 NG/ML (8.6-58.9) Rapid Plasma Reagin Pending Current Medications Medications (Trade) Dose Ordered Sig/Miriam Route PRN Reason Start Time Stop Time Status Last Admin Dose Admin Acetaminophen (Tylenol) 650 mg Q4H PRN ORAL Mild Pain (Pain Scale 1-3) 11/13/17 19:30 12/13/17 19:29 Acetaminophen (Tylenol) 650 mg Q4H PRN ORAL fever 11/13/17 19:30 12/13/17 19:29 Bisacodyl (Dulcolax) 10 mg HSPRN PRN RECTAL Constipation 11/13/17 19:30 12/13/17 19:29 Ceftriaxone Sodium 1 gm/ Sodium Chloride 110 ml @ 220 mls/hr QHS IVPB 11/13/17 22:00 11/20/17 21:59 11/13/17 22:41 Dextrose (Dextrose 50%) 25 ml STAT PRN IV Hypoglycemia 11/13/17 19:30 12/13/17 19:29 Dextrose (Dextrose 50%) 50 ml STAT PRN IV Hypoglycemia 11/13/17 19:30 12/13/17 19:29 Docusate Sodium (Colace) 100 mg EVERY 12 HOURS ORAL 11/13/17 21:00 12/13/17 20:59 11/14/17 08:56 Heparin Sodium (Porcine) (Heparin 5000 units/ml) 5,000 units EVERY 12 HOURS SUBQ 11/13/17 21:00 12/13/17 20:59 11/13/17 22:43 Lisinopril (Zestril) 10 mg DAILY ORAL 11/14/17 09:00 12/14/17 08:59 11/14/17 08:56 Lorazepam (Ativan) 0.5 mg BIDPRN PRN ORAL anxiety 11/13/17 19:45 11/20/17 19:44 Lorazepam (Ativan) 1 mg ONCE PRN ORAL PRIOR TO MRI 11/14/17 14:15 11/14/17 23:59 11/14/17 14:31 Ondansetron HCl (Zofran) 4 mg Q6H PRN IVP Nausea & Vomiting 11/13/17 19:30 12/13/17 19:29 Pantoprazole (Protonix) 40 mg DAILY ORAL 11/14/17 09:00 12/14/17 08:59 11/14/17 08:56 Polyethylene Glycol (Miralax) 17 gm HSPRN PRN ORAL Constipation 11/13/17 19:30 12/13/17 19:29 Sodium Chloride 1,000 ml @ 75 mls/hr [id number] IVLG 11/13/17 20:00 12/13/17 19:59 11/13/17 22:41 Tramadol HCl (Ultram) 50 mg Q6H PRN ORAL moderate to severe pain 11/13/17 19:45 11/20/17 19:44 KAROLYN GARCIA Nov 14, 2017 16:30
[2017-11-14] MEDS: Vitamin B12 1000mcg/ml Inj SUBQ SCH (17:57)
[2017-11-14] MEDS ORDERED: Tubing IV Secondary IV ONE (18:25)
[2017-11-14 19:17] LABS: APPEARANCE,URINE CLEAR; BILIRUBIN, URINE NEGATIVE (NEGATIVE); COLOR,URINE PALE YELLOW; GLUCOSE, URINE (UA) NEGATIVE (NEGATIVE); KETONES,URINE NEGATIVE (NEGATIVE); LEUKOCYTE ESTERASE ,URINE 1+ (NEGATIVE); NITRITE,URINE NEGATIVE (NEGATIVE); PH,URINE 5 (4.5-8.0); PROTEIN,URINE 3+ (NEGATIVE); UROBILINOGEN,URINE NORMAL MG/DL (0.0-1.0)
[2017-11-14 20:00] VITALS: BP 147/81
--- NOTE | 2017-11-14 20:30 | Consultation ---
DATE OF CONSULTATION: 11/14/2017 NEUROLOGY CONSULTATION CONSULTING PHYSICIAN: Carlos Beauchamp M.D. REQUESTING PHYSICIANS: 1. Rogers Huizar M.D. 2. Johanny Arambula M.D. HISTORY OF PRESENT ILLNESS: The patient is an 87-year-old right-handed gentleman, who does have a past history of hypertension, macular degeneration, osteoarthritis, status post bilateral total knee replacements, gait problems for quite some time now, neuropathy of unknown etiology and chronic alcohol use. Approximately two to three weeks ago, he noted that he was having increasing problems with his memory and increasing unsteadiness on his feet. Then approximately one week ago, he decided to stop drinking because he felt that the above-mentioned problems may be related to the alcohol and he noticed that his hands became increasingly more tremulous. These problems got progressively worse and as a result of that, he was hospitalized. He denies any weakness on one side or the other, numbness on one side or the other, problems with speech, problems with language, problems with vision, other than the problems he has with his macular degeneration. He has noticed that he is having problems with remembering names of people and names of objects. He also has problems with naming. He also sometimes forgets the dates and at times, forgets important appointments. He has not noticed any problems with finding his way from one place to the other with his ability to calculate and his ability to . He does have some altered sensations in both his feet, which has been diagnosed as being neuropathy, however, the etiology for the neuropathy has been unknown up till now. He has had problems with walking for quite some time now. When he walks short distances, he can do relatively well. However, when he walks longer distances, he feels that his legs will give way and there is weakness in the legs. These problems have been progressively worsening over time. PAST MEDICAL HISTORY: Significant for hypertension, macular degeneration, osteoarthritis involving both knees, status post total knee replacements, gait problems for quite some time now, neuropathy of unknown etiology, and chronic alcohol use. PRESENT MEDICATIONS: Include magnesium sulfate, lisinopril, Protonix, ceftriaxone, heparin for DVT prophylaxis, DSS, lorazepam 0.5 mg p.r.n., tramadol 50 mg q.6 hours p.r.n., Tylenol p.r.n., Dulcolax, MiraLAX, and Zofran p.r.n. FAMILY HISTORY: Nothing significant from a neurological point of view. PERSONAL HISTORY: Home, he lives alone with his cats. 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 Habits, he started smoking at age 9 and stopped smoking when he was 62 years old. He has been drinking at least two alcoholic drinks every day for numerous years and prior to that, he was drinking even more. He denies use of any illicit drugs. PHYSICAL EXAMINATION: GENERAL: He is a well-developed, well-nourished, pleasant gentleman, sitting up in a chair, in no acute distress. VITAL SIGNS: Pulse 71 per minute, blood pressure 138/96 mmHg, respirations 21 per minute, and temperature 98.5 degrees Fahrenheit. HEENT: Head, normocephalic and atraumatic. EENT examination benign. NECK: No neck rigidity was observed. NEUROLOGIC EXAMINATION: Mental status, he was awake and alert. He was oriented to person, place, and time except for the exact date. He was able to recall 3/3 words immediately, but could only remember 2/3 words in 1 minute and 3 minutes on the first trial. On the second trial, he was able to remember all 3 words in 1 minute and 3 minutes. He was able to remember presidents Trump through [place], but could not remember presidents prior to that. His mathematical skills were good. His visuospatial function was preserved. Speech, he had no dysarthria. Language, he had a mild anomia for low-frequency words. CRANIAL NERVE II: The visual soni were intact on confrontation testing. CRANIAL NERVES III, IV, AND : External ocular movements were full and the pupils 3 mm in diameter, equal, round, regular, and reactive to light. CRANIAL NERVE V: He had normal facial sensations in the temporalis, masseters, and pterygoids function normally. CRANIAL NERVE VII: He had right VII central facial paresis. CRANIAL NERVE VIII: He was able to hear well bilaterally and had no nystagmus. CRANIAL NERVE IX: The palate moved symmetrically on phonation. CRANIAL NERVE X: He had no hoarseness of voice. CRANIAL NERVE XI: The sternocleidomastoids and trapezii function normally. CRANIAL NERVE XII: The tongue was in midline without any fasciculations or atrophy. MOTOR SYSTEM: The tone was normal in all four extremities. Examination of muscle mass revealed no focal wasting. Examination of power revealed grade 5/5 power in all muscle groups tested. SENSORY EXAMINATION: He had intact sensations to pinprick, light touch, and graphesthesia. Position sense was diminished in the toes bilaterally, but was normal in the fingers bilaterally. COORDINATION: He performed well on iabgss-mi-obhy and ijic-ws-iefz testing. On Romberg test, he swayed, but did not fall to one side or the other. REFLEXES: Trace positive and bilaterally symmetrical at the biceps, triceps, brachioradialis and 0 at both knees and ankles. The plantar responses were flexor bilaterally. STANCE: He had a wide-based stance. GAIT: He had a wide-based, but stable gait. DIAGNOSTIC IMPRESSION: 1. The patient is an 87-year-old, right-handed, gentleman, who does have a past history of hypertension, macular degeneration, osteoarthritis involving his knees for which he has had bilateral total knee replacements, gait problems for numerous years, which have been progressively worsening, neuropathy of unknown etiology, chronic alcohol use, and recently problems with memory and increased unsteadiness on his feet. In addition, for the last week or so, he has noticed a tremor involving his hands and this was preceded by himself drinking alcohol. 2. On neurological examination at this time, he does demonstrate disorientation to exact date, mild problems with recent and remote memory, right VII central facial paresis, decreased position sense in the toes bilaterally, globally diminished reflexes in the upper extremities with loss of deep tendon reflexes in the lower extremities, a wide-based stance and gait, and a 7 to 8 hertz tremor involving the outstretched hands. 3. Laboratory data obtained thus far have revealed a mild anemia with a hemoglobin of 13.0, relatively normal chemistry panel, and relatively normal lipid profile. His urine however reveals 1+ leukocyte esterase, with 2 to 4 red blood cells, and 0 to 2 white blood cells per high-power field. 4. The CT scan of the brain without contrast performed on 11/13/2017 revealed mild atrophy and nonspecific white matter abnormalities, but no acute pathology. 5. The patient's history, neurological examination, laboratory data, and imaging studies are most compatible with cognitive dysfunction due to either an encephalopathy versus an early primary degenerative process. There is also possibility that the alcohol that the patient was consuming in the past could be responsible he also has right VII central facial paresis, which may be either due to old versus new cerebrovascular disease. His gait disorder is most probably due to a combination of a neuropathic process and possibly spinal intermittent claudication. RECOMMENDATIONS: 1. The patient should be worked up thoroughly for treatable causes of memory decline and neuropathy with in addition to the laboratory tests already done, a B12 level, folate level, vitamin D level, RPR, glycohemoglobin, Westergren sedimentation rate, thyroid function tests and serum protein immunoelectrophoresis. 2. An MRI scan of the brain will be ordered to evaluate the patient for intracranial pathology. 3. An MRI scan of the lumbosacral spine will be ordered to evaluate the patient for spinal stenosis. 4. An EEG will be ordered to evaluate the patient for the degree and type of cerebral dysfunction. 5. The patient will be started on a course of physical and occupational therapy. 6. The patient will be observed closely and depending on how he fairs over the next day or so, further recommendations will be given. Thank you for entrusting me with the care of this patient. I shall follow him with you. Carlos Beauchamp M.D. DR: CASPER JOB#: [id number] CC:
[2017-11-14] MEDS: cefTRIAXone 1 GM in NS 110 ML IVPB SCH (21:38)
--- NOTE | 2017-11-14 21:45 | Consultation ---
DATE OF CONSULTATION: 11/14/2017 NEPHROLOGY CONSULTATION CONSULTING PHYSICIAN: Juan Richard M.D. REFERRING PHYSICIAN: Rogers Huizar M.D. REASON FOR CONSULTATION: Proteinuria. HISTORY OF PRESENT ILLNESS: This is an 87-year-old white male, who was admitted with generalized weakness. I was asked to see him for his proteinuria. He had UA which shows 4+ protein, otherwise relatively unremarkable. There was 2 to 4 rbc's per high-power field. He does not have any history of kidney disease except that he was told a few weeks ago that he had to follow up for some kidney issues, cannot give any details, at [place]. He does have some problems with his prostate. PAST MEDICAL HISTORY: Includes also history of hypertension, macular degeneration, some neuropathy. He has had chronic alcohol use, he stated that he stopped about a week ago. There are also problems with memory and unsteadiness. MEDICATIONS: Reviewed in the EMR. ALLERGIES: No known drug allergies. SOCIAL HISTORY: As mentioned, the patient does have history of alcohol abuse. No history of smoking. REVIEW OF SYSTEMS: The patient complained of some dysuria, otherwise unremarkable. PHYSICAL EXAMINATION: GENERAL: The patient is an elderly male, in no acute distress. VITAL SIGNS: Blood pressure is 138/96, pulse 71, respiratory rate 21, and temperature 98.5 degrees. HEENT: [place] conjunctivae. Anicteric sclerae. NECK: Supple. LUNGS: Clear to auscultation. HEART: S1, S2 without murmurs or rubs. ABDOMEN: Soft and nontender. EXTREMITIES: Bilateral pedal edema. LABORATORY FINDINGS: The CBC shows WBC of 5.1, hematocrit 38.1, hemoglobin 13, platelets 131,000. Chemistry panel shows serum sodium 143, potassium 3.5, chloride 107, CO2 29, BUN 18, creatinine 1.1, magnesium 1.6. TSH is okay. ASSESSMENT: This is an 87-year-old white male, who was admitted with weakness. He has significant proteinuria on the UA and absence of any other apparent kidney problem, so he may have some nephrotic syndrome. If indeed he does have, the possibility is that he may have minimal change disease. He states that he has had edema for the past 6 months, which could go along with diagnosis of nephrotic syndrome. PLAN: A 24-hour urine will be done for protein and creatinine. Based on that, further studies may be required including kidney biopsy. Thank you very much for this consultation. Juan Richard M.D. DR: Matheus JOB#: [id number] CC: ROMEO
--- NOTE | 2017-11-14 22:00 | Consultation ---
DATE OF CONSULTATION: 11/14/2017 INFECTIOUS DISEASE CONSULTATION CONSULTING PHYSICIAN: Johanny Arambula M.D. ATTENDING PHYSICIAN: Jessica Bourgeois M.D. REFERRING PHYSICIAN: Rogers Huizar M.D. REASON FOR CONSULTATION: Possible urinary tract infection and prostatitis. CHIEF COMPLAINT: The patient's chief complaint coming in the hospital is gait instability and also weakness. HISTORY OF PRESENT ILLNESS: This is a very pleasant 87-year-old male, who comes in to [facility]. The patient has a history of hypertension and possible BPH and also history of urinary tract infection in the past including history of prostatitis. The patient presents to [facility] with decreasing gait and weakness and tremor. The patient is being worked up by Neurology. CT scan of the head showed no acute disease and had mild atrophy. CT scan of the spine was also ordered for the patient who has sciatica and back pain. MRI of the brain showed moderate atrophy, but no acute intracranial findings. The patient has at this time frequency of urination and dysuria. Urinalysis had 1+ leukocyte esterase. Urine culture has been ordered followup urinalysis. The patient also was noted to have proteinuria and is being worked up by Nephrology in addition to the neurology workup. Case was discussed with Dr. Mccloud. The patient has been started on Rocephin 1 g IV q.24 hours. REVIEW OF SYSTEMS: CONSTITUTIONAL: The patient has generalized fatigue, but he does have a tremor he says in his hands and decreasing gait or instability of gait. He denies any fever, chills, night sweats, or weight loss. HEAD AND NECK: No thrush or dysphagia. No neck stiffness. No change in vision. CARDIAC: No chest pain or palpitations. GASTROINTESTINAL: No nausea, vomiting, or diarrhea. GENITOURINARY: He does have frequency of urination and dysuria. PULMONARY: No congestion, shortness of breath, hemoptysis, or secretions. SKIN: No rash or itching. EXTREMITIES: No extremity pain. NEUROLOGIC: He has a tremor and decreased gait or instability of gait. No obvious focal weaknesses as mentioned. No seizures. He does have some back pain. He says his burning is more today than before. PAST MEDICAL HISTORY: The patient's past medical history includes history of following. The patient has a past medical history of hypertension. He has history of possible BPH. He has a history of prostatitis and UTI. He has history of orthopedic surgery, I believe is knee replacement. He has a history of GERD or heartburn. History of tremor and unstable gait as discussed. No history of heart attack or cancer that has been diagnosed. 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 Other past medical history, he has history of decrease in vision and macular degeneration, history of skin cancer, history of osteoarthritis, history of bilateral total knee replacements, history of neuropathy also in the past medical history. I think he does have a history of skin cancer also in the past. In addition to BPH, heart burn, and GERD, he has history of macular degeneration, osteoarthritis, bilateral total knee replacement, gait abnormality, and neuropathy also. ALLERGIES: No known drug allergies. FAMILY HISTORY: Noncontributory. Negative for exposure to tuberculosis or cancer. SOCIAL HISTORY: Positive for drinking on occasion. No smoking or IV drug abuse. MEDICATIONS: Upon reviewing the MAR, he is on the following medications. He is on Ativan, Zestril, Protonix, Rocephin, docusate, lorazepam, tramadol, and acetaminophen. He is on bisacodyl, polyethylene, and Zofran. Outside medications were noted and reconciliated. He was on acetaminophen and Levaquin, he was given Levaquin as an outpatient. It looks like he is on lisinopril, lorazepam, metronidazole, omeprazole, and tramadol. PHYSICAL EXAMINATION: VITAL SIGNS: Temperature is 97.7, pulse rate 62, respiratory rate 20, blood pressure 126/56, and saturation 99% on room air. GENERAL: Alert, responsive, in no acute distress. He is oriented x3. HEAD AND NECK: Oral exam, no thrush. Eye exam, no icterus. Normocephalic. No facial droop. No neck stiffness. Neck is supple. HEART: Regular. No gallop or murmur. ABDOMEN: Soft. Positive bowel sounds. Nontender. LUNGS: Clear bilaterally. No rhonchi or rales. SKIN: No rash. MUSCULOSKELETAL: No effusion. Legs are without vasculitis. PERIPHERAL VASCULAR: No gangrene. SKIN: No other rash noted. LINES: Line sites without phlebitis. GENITOURINARY: No Justice. No CVA tenderness. NEUROLOGIC: Intact. Nonfocal. Alert and oriented x3. However, he does have some difficulty with gait. He does have a tremor in his hands. LABORATORY AND DIAGNOSTIC DATA: Laboratory data as follows, creatinine is 1.1, calcium is 8.7. LFTs were noted. I have ordered a PSA, which is pending. His urinalysis had 4+ protein, positive ketones, 1+ leukocyte esterase, and positive RBCs. Urine C and S had been reordered because of dysuria and frequency of urination. CBC, white count 5.1, hemoglobin 13.0, and ESR 5. A 24-hour protein has been ordered. I have repeated UA and C and S. Drug screen is negative. ETOH screen is pending. Serology for RPR was pending. Imaging, chest x-ray is negative. MRI of the brain and CT of the head showed no acute abnormalities, reports were noted. Urine culture pending. Creatinine 1.1. ASSESSMENT AND PLAN: 1. The patient has urinary frequency and dysuria, questionable UTI, questionable prostatitis. The patient has a history of elevated PSA and prostatitis. He was seen by Urology in the past and was treated with Levaquin and that improved. The patient now has dysuria and frequency with abnormal urinalysis with 1+ leukocyte esterase. Questionable if he has urinary tract infection, also must rule out prostatitis, which he has had in the past. I will repeat UA and C and S and check PSA level. Continue Rocephin for now. He was on Levaquin, which could have sterilized the urine prior to admission. Continue Rocephin. We will check UA and urine C and S. Continue treatment for possible UTI and prostatitis for now. 2. Tremor and abnormal gait, workup per Neurology. The patient also had a spinal MRI. CT of the head and MRI of the brain showed no acute abnormality and reports were noted. Continue workup per Neurology. 3. Proteinuria. The patient has been seen by Nephrology and workup is in progress. 4. The patient has hypertension. 5. GERD and heartburn. 6. Questionable BPH. 7. Osteoarthritis. 8. Bilateral total knee replacement. 9. Gait abnormality. 10. Neuropathy. 11. History of ETOH use. 12. Questionable skin cancers. 13. Hypertension. 14. Macular degeneration. 15. Social history positive for occasional alcohol abuse for the patient. No smoking or IV drug abuse. 16. Family history is noncontributory. 17. Allergies are negative. 18. MAR was noted. 19. Case was discussed with RN. 20. Case was discussed with Dr. Mccloud. 21. Continue treatment per primary consultants. Johanny Arambula M.D. DR: KESHA JOB#: [id number] CC:
[2017-11-15] VITALS: BP 142/97
[2017-11-15 04:00] VITALS: BP 153/96
[2017-11-15 08:00] VITALS: BP 154/86
--- NOTE | 2017-11-15 08:33 | General Progress Note ---
Assessment/Plan Problem List: (1) Encephalopathy ICD Codes: G93.40 - Encephalopathy, unspecified SNOMED: 52060027 (2) UTI (urinary tract infection) ICD Codes: N39.0 - Urinary tract infection, site not specified SNOMED: 57495244 (3) Gait instability ICD Codes: R26.81 - Unsteadiness on feet SNOMED: 23677157, 916666011 (4) HTN (hypertension) ICD Codes: I10 - Essential (primary) hypertension SNOMED: 44353385 (5) GERD (gastroesophageal reflux disease) ICD Codes: K21.9 - Gastro-esophageal reflux disease without esophagitis SNOMED: 609787234 (6) Anxiety ICD Codes: F41.9 - Anxiety disorder, unspecified SNOMED: 36283195 (7) Proteinuria ICD Codes: R80.9 - Proteinuria, unspecified SNOMED: 14401006 (8) Occasional tremors Assessment & Plan: Possibly related to alcohol withdrawal ICD Codes: R25.1 - Tremor, unspecified SNOMED: 16275244 Status: stable Assessment/Plan Neurology consulted B12 borderline low. B12 supplementation started Check MRI brain --> no acute abnormality, moderate atrophy Check MRI L spine --> degenerative disease Check EEG --> neg Neuro checks ID consulted Empiric ceftriaxone F/u urine culture Renal consult for 4+ proteinuria seen on U/A F/u 24h urine collection Pain control, bowel regimen Supportive care PT/OT eval Pt declines SNF/rehab placement. Amenable to home health Home health ordered D/w SW and form filled out so pt should no drive DVT Prophylaxis: SCD, HSQ Code Status: Full Hospital Classification Declaration: Based on this initial evaluation, and depending on the patient's clinical course, I anticipate that this patient will require hospitalization for 1-2 days for workup of encephalopathy, UTI and close respiratory/hemodynamic monitoring. Disposition: Once the patient is stable to leave the hospital, I anticipate the patient will likely be discharged to the following environment: home with HH vs SNF (pt declines SNF) I spent 42 minutes on this patient's case, and >50% was dedicated to counseling and/or care coordination. Discussed with patient/family, nursing staff, SW/CM, ID, neuro regarding clinical status, treatment course, and disposition planning. D/w ID re abx. D/w neuro re EEG, MRI. D/w renal re 24h urine Time of note may not reflect time of encounter. Subjective Date patient seen: Nov 14, 2017 Time patient seen: 13:00 ROS Limited/Unobtainable: No Constitutional: Reports: weakness HEENT: Reports: no symptoms Cardiovascular: Reports: no symptoms Respiratory: Reports: no symptoms Gastrointestinal/Abdominal: Reports: no symptoms Genitourinary: Reports: no symptoms Neurologic/Psychiatric: Reports: anxiety, tremors, weakness Endocrine: Reports: no symptoms Hematologic/Lymphatic: Reports: no symptoms Allergies: Coded Allergies: No Known Allergies (Unverified , 11/15/16) Subjective No acute o/n events Pt more awake/alert. Denies f/c, n/v, d/c, chest pain, SOB, abd pain Objective Last 24 Hour Vital Signs Date Time Temp Pulse Resp B/P (MAP) Pulse Ox O2 Delivery O2 Flow Rate FiO2 11/15/17 04:01 Room Air 11/15/17 04:00 98.1 78 20 153/96 96 98.1 11/15/17 00:00 98.3 75 20 142/97 97 98.3 11/14/17 20:00 97.1 73 20 147/81 98 97.1 11/14/17 16:00 97.7 62 20 126/56 99 Room Air 97.7 11/14/17 12:01 98.8 82 22 148/78 99 Room Air 98.8 11/14/17 08:56 138/96 Intake and Output 11/14/17 11/15/17 19:00 07:00 Intake Total 1370 ml 20 ml Output Total 350 ml Balance 1370 ml -330 ml Intake Oral 720 ml 20 ml IV Total 650 ml Output Urine Total 350 ml # Bowel Movements 2 1 Laboratory Tests 11/14/17 13:40: Erythrocyte Sedimentation Rate 5, Hemoglobin A1c 5.6, Total Protein (PEP) [ Pending], Albumin (PEP) [Pending], Globulin (PEP) [Pending], Albumin/Globulin Ratio [Pending], Wzuxb-7-Srbaddcga [Pending], Ovaxh-6-Augmwappy [Pending], Beta Globulins [Pending], Beta Gamma Globulin [Pending], PEP Abnormal Protein Bands [ Pending], Protein Electrophoresis Interpret [Pending], Prostate Specific Antigen 4.89H, Vitamin B12 Level 260, Vitamin D 25-Hydroxy [Pending], 25- Hydroxy Vitamin D2 [Pending], 25-Hydroxy Vitamin D3 [Pending], Folate 10.1, Rapid Plasma Reagin [Pending] 11/14/17 18:30: Urine Color Pale yellow, Urine Appearance Clear, Urine pH 5, Urine Specific [place] 1.015, Urine Protein 3+H, Urine Glucose (UA) Negative, Urine Ketones Negative, Urine Occult Blood 2+H, Urine Nitrite Negative, Urine Bilirubin Negative, Urine Urobilinogen Normal, Urine Leukocyte Esterase 1+H, Urine RBC 2- 4H, Urine WBC 2-4, Urine Squamous Epithelial Cells None, Urine Amorphous Sediment FewH, Urine Bacteria Few Height (Feet): 5 Height (Inches): 9.00 Weight (Pounds): 216 Objective General: alert, cooperative, no distress, appears stated age Head: normocephalic, without obvious abnormality, atraumatic Eyes: conjunctivae/corneas clear. PERRL, EOM's intact Throat: lips, mucosa, and tongue normal. MMM Neck: supple, symmetrical, trachea midline, and no JVD Lungs: clear to auscultation bilaterally Heart: regular rate and rhythm, S1, S2 normal, no murmur, click, rub or gallop Abdomen: soft, non-tender, non-distended, bowel sounds normal; no masses or organomegaly Extremities: extremities normal, atraumatic, no cyanosis or edema Pulses: 2+ and symmetric Skin: skin color, texture, turgor normal; no rashes or lesions Neurologic: grossly normal, no focal deficits, +tremors Rogers Huizar M.D. Nov 15, 2017 08:33
[2017-11-15] MEDS: Heparin 5000 units/ml inj SUBQ SCH (09:00)
[2017-11-15 09:17] VITALS: BP 154/86
[2017-11-15] MEDS: Lisinopril 10mg tab ORAL SCH (09:17)
[2017-11-15] MEDS: Docusate 100mg cap ORAL SCH (09:17)
[2017-11-15] MEDS: Vitamin B12 1000mcg/ml Inj SUBQ SCH (09:22)
[2017-11-15] MEDS ORDERED: CEFTIN250 MG/5 M PO (10:44)
--- NOTE | 2017-11-15 11:08 | Nephrology Progress Note ---
Assessment/Plan Problem List: (1) Proteinuria (2) Frequent falls (3) Gait instability Plan await 24 hr urine discussed with RN I will follow pt as outpt if discharged Subjective Subjective wants to go home today Objective Objective Last 24 Hour Vital Signs Date Time Temp Pulse Resp B/P (MAP) Pulse Ox O2 Delivery O2 Flow Rate FiO2 11/15/17 09:17 154/86 11/15/17 08:00 99.0 98 19 154/86 94 Room Air 99.0 11/15/17 04:01 Room Air 11/15/17 04:00 98.1 78 20 153/96 96 98.1 11/15/17 00:00 98.3 75 20 142/97 97 98.3 11/14/17 20:00 97.1 73 20 147/81 98 97.1 11/14/17 16:00 97.7 62 20 126/56 99 Room Air 97.7 11/14/17 12:01 98.8 82 22 148/78 99 Room Air 98.8 Intake and Output 11/14/17 11/15/17 19:00 07:00 Intake Total 1370 ml 20 ml Output Total 350 ml Balance 1370 ml -330 ml Intake Oral 720 ml 20 ml IV Total 650 ml Output Urine Total 350 ml # Bowel Movements 2 1 Laboratory Tests 11/14/17 13:40: Erythrocyte Sedimentation Rate 5, Hemoglobin A1c 5.6, Total Protein (PEP) [ Pending], Albumin (PEP) [Pending], Globulin (PEP) [Pending], Albumin/Globulin Ratio [Pending], Jhdhp-8-Lunlmugsf [Pending], Jccxp-0-Honydswaf [Pending], Beta Globulins [Pending], Beta Gamma Globulin [Pending], PEP Abnormal Protein Bands [ Pending], Protein Electrophoresis Interpret [Pending], Prostate Specific Antigen 4.89H, Vitamin B12 Level 260, Vitamin D 25-Hydroxy [Pending], 25- Hydroxy Vitamin D2 [Pending], 25-Hydroxy Vitamin D3 [Pending], Folate 10.1, Rapid Plasma Reagin [Pending] 11/14/17 18:30: Urine Color Pale yellow, Urine Appearance Clear, Urine pH 5, Urine Specific [place] 1.015, Urine Protein 3+H, Urine Glucose (UA) Negative, Urine Ketones Negative, Urine Occult Blood 2+H, Urine Nitrite Negative, Urine Bilirubin Negative, Urine Urobilinogen Normal, Urine Leukocyte Esterase 1+H, Urine RBC 2- 4H, Urine WBC 2-4, Urine Squamous Epithelial Cells None, Urine Amorphous Sediment FewH, Urine Bacteria Few Height (Feet): 5 Height (Inches): 9.00 Weight (Pounds): 216 Cardiovascular: normal rate Respiratory/Chest: lungs clear Extremities: moderate edema ERICK GRACE Nov 15, 2017 11:08
--- NOTE | 2017-11-16 07:01 | Discharge Summary ---
Discharge Summary Hospital Course Date of Admission Nov 13, 2017 at 17:30 Date of Discharge Nov 15, 2017 at 12:00 (AMA) Admitting Diagnosis general weakness, gait instability Reason for Hospitalization: general weakness, gait instability HPI 87y/o male with pmh of HTN, anxiety, GERD who presents with increasing confusion , tremors, and gait instability. Pt lives at home, usually drives on his own, he is brought by a friend as friend states that he has been increasingly weak for the last 3 weeks. He has had worsening bilateral hand tremors, sometimes unable to walk and loses his balance. He has fallen however denies head trauma. Patient is currently ANO 4, however friend states that he will intermittently forget everything. Patient walks with a cane however recently has been walking very slowly, and feels like he will fall at any time. Denies f/ c, n/v, d/c, chest pain, SOB, abd pain. Consultations Neurology, Infectious disease, Nephrology Hospital Course Pt was admitted and seen by neurology. Workup including MRI brain and L spine showed no acute abnormality. Pt noted to have borderline low B12 level, so started on B12 supplementation. Pt also treated empirically with ceftriaxone for UTI. U/A also showed 4+ protein so renal was consulted and 24h urine studies ordered. Pt was seen by PT/OT. Home health ordered. Pt ultimately left AMA prior to completion of workup. Discharge Medications New Medications: Cefuroxime Axetil (Ceftin) 250 Mg/5 Ml Susp.recon 250 MG PO BID for 5 Days, ML Continued Medications: Acetaminophen* (Acetaminophen 325MG Tablet*) 325 Mg Tablet 325 MG ORAL BID (This prescription has been renewed) Lisinopril* (Lisinopril*) 10 Mg Tablet 10 MG ORAL DAILY (This prescription has been renewed) Lorazepam* (Lorazepam*) 0.5 Mg Tablet 0.5 MG ORAL BID (This prescription has been renewed) Omeprazole (Omeprazole) 10 Mg Capsule.dr 10 MG ORAL TWICE A DAY, 0 Refills (This prescription has been renewed) Tramadol Hcl* (Ultram*) 50 Mg Tablet 50 MG ORAL Q6H PRN for For Pain, 0 Refills (This prescription has been renewed) Discontinued Medications: Levofloxacin (Levofloxacin*) 500 Mg Tablet 500 MG ORAL DAILY Metronidazole* (Flagyl*) 500 Mg Tablet 500 MG ORAL EVERY 8 HOURS Discharge Discharge Disposition Patient was discharged to [facility] Discharge Diagnoses: (1) Encephalopathy (2) UTI (urinary tract infection) (3) Gait instability (4) Occasional tremors (5) HTN (hypertension) (6) GERD (gastroesophageal reflux disease) (7) Anxiety (8) Proteinuria (9) B12 deficiency (10) Hypomagnesemia Rogers Huizar M.D. Nov 16, 2017 07:01
--- NOTE | 2017-11-16 18:30 | Electroencephalogram ---
DATE OF PROCEDURE: 11/14/2017 EEG REPORT REQUESTING PHYSICIAN: Johanny Arambula M.D. HISTORY: This EEG was performed on an 87-year-old gentleman with a history of cognitive dysfunction. The purpose of this EEG was to evaluate the patient for the degree and type of cerebral dysfunction. TECHNICAL NOTE: This EEG was performed on a [employer] Digital Ac[employer] Unit with electrodes placed on the scalp according to the international 10-20 system. Mdiwh-kz-qswjs and fxypm-uv-eve montages were used. A large array of montages were available for review of the EEG. The EEG was technically satisfactory and was performed in the awake, drowsy and sleep states. OBSERVATIONS: In the best awake state, the background activity consisted of 9 to 10 hertz posteriorly predominant well-developed alpha waveforms, which attenuated on eye opening. Drowsiness was characterized by dissolution of the alpha rhythm and the appearance of slow frequencies in the 5 to 6 hertz theta range. Stage 2 sleep was characterized by further slowing of the background in the delta and theta range, the presence of vertex waves, and 14 to 16 hertz sleep spindles. No focal abnormalities or epileptiform discharges were seen. IMPRESSION: Normal awake, drowsy, and stage 2 sleep EEG. Carlos Beauchamp M.D. DR: ISIAH JOB#: [id number] CC:
== END 2017-11-15 12:00 | disposition left against medical advice (07) | DRG 71 ==
LOC: EDBEDREQ 17:01 → EMR 17:11 → 4E 17:30 → EDBEDREQ 17:44
DX: G93.40 Encephalopathy, unspecified (principal); N39.0 Urinary tract infection, site not specified; R26.81 Unsteadiness on feet; Z91.81 History of falling; G62.9 Polyneuropathy, unspecified; K21.9 Gastro-esophageal reflux disease without esophagitis; I10 Essential (primary) hypertension; Z96.653 Presence of artificial knee joint, bilateral; F10.21 Alcohol dependence, in remission; F41.9 Anxiety disorder, unspecified; R25.1 Tremor, unspecified; E53.8 Deficiency of other specified B group vitamins; E83.42 Hypomagnesemia; H35.30 Unspecified macular degeneration; G51.0 Bell's palsy; N40.0 Benign prostatic hyperplasia without lower urinary tract symptoms
CPT/HCPCS: 36415; 70450; 70551; 71045; 72148; 80053; 80061; 80307; 81003; 82306; 82607; 82746; 83036; 83735; 83880; 84153; 84165; 84443; 84484; 85025; 85651; 86592; 87086; 93005; 95819; 99285

== ENCOUNTER 2019-10-10 13:10 | Outpatient (CLI) | payer MEDICARE, MEDICAID ==
[~2019-10-10 13:10] MED LIST: ACETAMINOPHEN325 M1 ORAL; CEFTIN250 MG/5 M PO; LEVOFLOXACIN500 MG ORAL; LISINOPRIL10 MG ORAL; LORAZEPAM0.5 MG ORAL; METRONIDAZOLE500 MG ORAL; OMEPRAZOLE10 M1 ORAL; TRAMADOL HCL50 MG ORAL
--- NOTE | 2019-10-10 22:15 | Consultation ---
DATE OF CONSULTATION: 10/10/2019 CHIEF COMPLAINT: Chronic cough, acid reflux disease, some dysphagia, and hoarseness. PAST MEDICAL HISTORY: 1. Chronic back pain. 2. Neuropathy. 3. Hypertension. 4. BPH. 5. Chronic acid reflux disease. PAST SURGICAL HISTORY: Appendectomy in 1970s, tonsillectomy, kidney stones, hernia repair x2, arm surgery. MEDICATION: Oxybutynin for chronic pain. ALLERGIES: No known allergies. FAMILY HISTORY: No family history of GI malignancies. SOCIAL HISTORY: The patient still drinks alcohol, but denies any tobacco usage. He quit. REVIEW OF SYSTEMS: Positive for chronic back pain, chronic cough, chronic GERD. No significant weight loss. No dysphagia. No odynophagia. No melena. No hematochezia. PHYSICAL EXAMINATION: GENERAL: A well-developed male, in no acute distress. HEENT: Normocephalic and atraumatic. Sclerae anicteric. NECK: Supple. No evidence of obvious lymphadenopathy. CARDIOVASCULAR: Regular rate and rhythm. Plus S1, S2. LUNGS: Clear to auscultation bilaterally. ABDOMEN: Positive bowel sounds. Soft and nontender. No rebound. No guarding. No peritoneal sign. EXTREMITIES: No cyanosis, no clubbing, no edema. ASSESSMENT/PLAN: This is an 89-year-old male with chronic GERD symptoms, now with chronic cough, needs an endoscopy to evaluation, rule out malignancy, rule out esophagitis, rule out Allen's. Our plan will be to schedule for next week for endoscopy. Meanwhile, the patient was given a prescription for Dexilant 60 mg p.o. daily and scheduled for next Tuesday to have an endoscopy done. I want to thank Dr. Arambula for this kind referral. Mahin Wilkins M.D. DR: ERIC JOB#: [id number] CC: Johanny Arambula M.D.; Fax#: [phone]
[2019-10-11] MEDS ORDERED: OXYBUTYNIN CHLOR5 M1 ORAL (10:39)
== END 2019-10-10 16:29 | disposition home or self-care (01) ==
LOC: PAN 13:10
DX: R05 Cough (principal); G62.9 Polyneuropathy, unspecified; I10 Essential (primary) hypertension; K21.9 Gastro-esophageal reflux disease without esophagitis; Z90.89 Acquired absence of other organs
CPT/HCPCS: G0463

== ENCOUNTER 2019-10-30 11:31 | Day surgery (SDC) | payer MEDICARE, MEDICAID ==
[~2019-10-30] VITALS: Ht 177.8 cm; Wt 93.0 kg
[~2019-10-30 11:31] MED LIST changes: +LR 1000ml 1,000 ML IV SCH; +LR 1000ml 1,000 ML IVLG SCH; +OXYBUTYNIN CHLOR5 M1 ORAL
--- NOTE | 2019-10-30 12:12 | Pre-Procedure Note/Attestation ---
Pre-Procedure Note/Attestation Complete Prior to Procedure Planned Procedure: not applicable Procedure Narrative: egd Indications for Procedure Pre-Operative Diagnosis: dysphagia Attestation I attest that I discussed the nature of the procedure; its benefits; risks and complications; and alternatives (and the risks and benefits of such alternatives ), prior to the procedure, with the patient (or the patient's legal account development representative). I attest that, if there was a reasonable possibility of needing a blood transfusion, the patient (or the patient's legal account development representative) was given the [facility] standardized written summary, pursuant to the [employer] [place] Blood Safety Act ([place] Health and Safety Code # 1645, as amended). I attest that I re-evaluated the patient just prior to the surgery and that there has been no change in the patient's H&P, except as documented below: Mahin Wilkins MD Oct 30, 2019 12:12
--- NOTE | 2019-10-30 12:13 | Short Stay Surgery H&P ---
History of Present Illness History of Present Illness Chief Complaint see recent office note HPI Ty Segundo is a 89 year old male who was admitted on for GERD Patient History Allergies: Coded Allergies: No Known Allergies (Unverified , 11/15/16) Relevant Family History: Patient reports no known family medical history. Medication History Scheduled Lisinopril* (Lisinopril*), 10 MG ORAL DAILY, (Reported) Lorazepam* (Lorazepam*), 0.5 MG ORAL BID, (Reported) Omeprazole (Omeprazole), 10 MG ORAL TWICE A DAY, (Reported) Miscellaneous Medications Oxybutynin Chloride (Oxybutynin Chloride), 5 MG ORAL, (Reported) Plan Attestation Are the patient's medical conditions optimized for surgery? Mahin Wilkins MD Oct 30, 2019 12:13
[2019-10-30 12:33] VITALS: BP 142/82
[2019-10-30] MEDS ORDERED: LR 1000ml ONE (13:00)
[2019-10-30] MEDS ORDERED: Propofol 200mg/20ml IV ONE (13:00)
[2019-10-30] MEDS ORDERED: Lidocaine 1% MPF 10mg/ml 5ml ONE (13:00)
--- NOTE | 2019-10-30 13:10 | Endoscopy Procedure Note ---
Endoscopy Procedure Note General Indication for Procedure: dysphagia Procedures Performed: EGD Operative Findings/Diagnosis: gastritis Specimen: yes Pt Tolerated Procedure Well: Yes Estimated Blood Loss: none Anesthesia Anesthesiologist: hiro Anesthesia: MAC Inserted Devices Implant(s) used?: No GI Core Measures 50 yrs or older w/o bx or poly: Not Applicable 10yrs. F/U recommended: Not Applicable Mahin Wilkins MD Oct 30, 2019 13:10
[2019-10-30] MEDS ORDERED: LR 1000ml 1,000 ML IVLG SCH (13:25)
[2019-10-30] MEDS ORDERED: Atropine Sulfate 0.4mg/ml inj IVP PRN (13:30)
[2019-10-30] MEDS ORDERED: Labetalol 5mg/ml 20ml vial IV PRN (13:30)
[2019-10-30] MEDS ORDERED: fentaNYL 100 mcg/2 mL IV PRN (13:30)
[2019-10-30] MEDS ORDERED: LORazepam Inj 2mg/ml 1ml IV PRN (13:30)
[2019-10-30] MEDS ORDERED: HYDROcodone/Acetamin 7.5/325 tab ORAL PRN (13:30)
[2019-10-30] MEDS ORDERED: DiphenhydrAMINE 50mg/ml Inj IVP PRN (13:30)
[2019-10-30] MEDS ORDERED: Metoclopramide 10mg/2ml Inj IVP PRN (13:30)
[2019-10-30] MEDS ORDERED: Hydromorphone 0.5mg/0.5ml inj IVP PRN (13:30)
[2019-10-30] MEDS ORDERED: Midazolam 2mg/2ml Inj IVP PRN (13:30)
[2019-10-30] MEDS ORDERED: Ketorolac 30mg Inj IV PRN ×2 (13:30)
[2019-10-30] MEDS ORDERED: Meperidine 25mg/0.5ml Inj (FOR RIGORS ONLY) IV PRN (13:30)
[2019-10-30] MEDS ORDERED: oxyCODONE HCL/Acetaminophen 5/325mg ORAL PRN (13:30)
[2019-10-30] MEDS ORDERED: HYDROcodone/Acetamin 5/325 tab ORAL PRN (13:30)
--- NOTE | 2019-10-30 13:38 | Anethesia Preoperative Eval ---
Anesthesia Pre-op PMH/ROS General Date of Evaluation: Oct 30, 2019 Time of Evaluation: 13:12 Anesthesiologist: Pari ASA Score: ASA 3 Mallampati Score Class I : Soft palate, uvula, fauces, pillars visible Class II: Soft palate, uvula, fauces visible Class III: Soft palate, base of uvula visible Class IV: Only hard plate visible Mallampati Classification: Class II Surgeon: Franky Diagnosis: GERD Surgical Procedure: EGD Anesthesia History: none Family History: no anesthesia problems Allergies: Coded Allergies: No Known Allergies (Unverified , 11/15/16) Medications: see eMAR Patient NPO?: Yes Past Medical History Cardiovascular: Reports: HTN Gastrointestinal/Genitourinary: Reports: other - BPH Neurologic/Psychiatric: Reports: CVA, other - Parkinsons, Neuropathy Hematology/Immune: Reports: other - Skin CA PSxH Narrative: Appendectomy, B TKR Anesthesia Pre-op Phys. Exam Physician Exam Last Vital Signs Date Time Temp Pulse Resp B/P (MAP) Pulse Ox O2 Delivery O2 Flow Rate FiO2 10/30/19 12:33 98.3 88 18 142/82 95 Room Air Constitutional: NAD Neurologic: CN 2-12 intact Cardiovascular: RRR Respiratory: CTA Gastrointestinal: S/NT/ND Airway Exam Mallampati Score: Class II MO: full ROM: full Teeth: intact Anesthesia Pre-op A/P Risk Assessment & Plan Assessment: ASA 3 Plan: TIVA Status Change Before Surgery: No Gordon Yañez MD Oct 30, 2019 13:38
--- NOTE | 2019-10-30 13:39 | Immediate Post-Op Evaluation ---
Immediate Post-Op Evalulation Immediate Post-Op Evalulation Procedure: EGD Date of Evaluation: Oct 30, 2019 Time of Evaluation: 14:07 IV Fluids: 400 LR Blood Products: 0 Estimated Blood Loss: 1 Urinary Output: 0 Blood Pressure Systolic: 142 Blood Pressure Diastolic: 91 Pulse Rate: 94 Respiratory Rate: 16 O2 Sat by Pulse Oximetry: 100 Temperature (Fahrenheit): 97.6 Pain Score (1-10): 1 Nausea: No Vomiting: No Complications 0 Patient Status: awake, reacts, patent, none Hydration Status: adequate Gordon Yañez MD Oct 30, 2019 13:39
--- NOTE | 2019-10-30 13:40 | 48 Hour Post Anesthesia Eval ---
Post Anesthesia Evaluation Procedure: EGD Date of Evaluation: Oct 30, 2019 Time of Evaluation: 16:12 Blood Pressure Systolic: 141 0: 78 Pulse Rate: 83 Respiratory Rate: 18 Temperature (Fahrenheit): 98 O2 Sat by Pulse Oximetry: 99 Airway: patent Nausea: No Vomiting: No Pain Intensity: 1 Hydration Status: adequate Cardiopulmonary Status: Stable Mental Status/LOC: patient returned to baseline Follow-up Care/Observations: 0 Post-Anesthesia Complications: 0 Follow-up care needed: ready to discharge Gordon Yañez MD Oct 30, 2019 13:39
[2019-10-30 13:48] VITALS: BP 145/91
[2019-10-30 13:50] VITALS: BP 142/85
[2019-10-30 14:00] VITALS: BP 138/97
[2019-10-30 14:06] VITALS: BP 144/90
[2019-10-30 14:15] VITALS: BP 139/88
--- NOTE | 2019-10-30 18:15 | Procedure Note ---
DATE OF PROCEDURE: 10/30/2019 SURGEON: Mahin Wilkins M.D. REFERRING PHYSICIAN: Johanny Arambula M.D. PROCEDURE: Upper endoscopy with biopsy. ANESTHESIA: Per Dr. Yañez. INSTRUMENT: Olympus adult flexible upper endoscope. INDICATION: Dysphagia. REASON FOR PROCEDURE: The procedure, risks, benefits, and possible consequences, including hemorrhage, aspiration, perforation and infection, and alternative treatments, were explained to the patient/legal guardian by Dr. Mahin Wilkins and the patient/legal guardian understood and accepted these risks. PROCEDURE IN DETAIL: After informed consent was obtained and the patient was adequately sedated, Olympus upper endoscope was advanced from mouth into the second portion of the duodenum and retroflexion was performed in the stomach. The patient had evidence of mild gastritis. Random biopsies from antrum and body was obtained to rule out H. pylori infection. No obvious esophageal mass was seen. GE junction at 42 cm from the incisors. No evidence of any esophagitis. At this time, the upper endoscope was retrieved and procedure was terminated. The patient tolerated the procedure very well without any complication. SUMMARY OF FINDINGS: 1. Gastroesophageal junction at 42 cm from the incisor. 2. Mild gastritis, status post biopsy, otherwise normal upper endoscopic examination. RECOMMENDATIONS: Follow up biopsy results and treat accordingly. I want to thank Dr. Johanny Arambula, for this kind referral. Mahin Wilkins M.D. DR: RAS JOB#: [id number] CC: Johanny Arambula M.D.; Fax#: [phone]
== END 2019-10-30 14:25 | disposition home or self-care (01) ==
LOC: GAS 11:31
DX: R13.10 Dysphagia, unspecified (principal); K29.50 Unspecified chronic gastritis without bleeding; I10 Essential (primary) hypertension; G20 Parkinson's disease; G62.9 Polyneuropathy, unspecified; Z85.828 Personal history of other malignant neoplasm of skin; Z90.89 Acquired absence of other organs; Z86.73 Personal history of transient ischemic attack (TIA), and cerebral infarction without residual deficits
CPT/HCPCS: 43239; 93005; J2704; J7120; 94003; 94150